=== PATIENT | male | born 1970 | race African-American/Black ===

== ENCOUNTER 2018-10-25 13:38 | Emergency (ER) | payer SELFPAY ==
[2018-10-25 14:58] LABS: ABS Eosinophils 0.1 10^3/ul (0-0.6); ABS Lymphocytes 0.8 10^3/ul (1.0-4.8); ABS Monocytes 0.4 10^3/ul (0-0.8); Eosinophil % 0.7 %; Hematocrit 37 % (42-52); Hemoglobin 12.7 g/dL (14.0-18.0); Lymphocyte % 9.5 %; Mean Corpuscular HGB Conc 34 g/dL (31-36); Mean Corpuscular Hemoglobin 31 pg (27-31); Mean Corpuscular Volume 91 fL (80-94); Mean Platelet Volume 9.2 fL (7.4-10.4); Nucleated Red Blood Cells % 0.1; Platelet Count 192 10^3/uL (150-450); Red Blood Count 4.11 10^6 /uL (4.18-5.48); Red Cell Distribution Width 14 % (10.5-15); White Blood Count 8.2 10^3/uL (3.5-10.8)
[2018-10-25 15:14] LABS: Urine Appearance Clear; Urine Bacteria Absent (Absent); Urine Bilirubin Negative (Negative); Urine Blood 2+ (Negative); Urine Color Yellow; Urine Glucose Negative (Negative); Urine Ketones Negative (Negative); Urine Nitrite Negative (Negative); Urine Protein Negative (Negative); Urine Red Blood Cell 3+(>10/hpf) (Absent); Urine Specific Gravity 1.013 (1.010-1.030); Urine Urobilinogen Negative (Negative); Urine White Blood Cell Trace(0-5/hpf) (Absent)
[2018-10-25 15:15] LABS: Albumin 4.3 g/dL (3.2-5.2); Albumin/Globulin Ratio 1.2 (1-3); BUN/Creatinine Ratio 18.1 (8-20); Calcium 9.3 mg/dL (8.6-10.3); EGFR African American 140.4 (>60); Globulin 3.6 g/dL (2-4); Potassium 3.9 mmol/L (3.5-5.0); Total Bilirubin 0.5 mg/dL (0.2-1.0); Total Protein 7.9 g/dL (6.4-8.9)
[2018-10-25 15:34] VITALS: BP 124/75
--- NOTE | 2018-10-25 16:41 | ED ---
Abdominal Pain/Male - HPI Summary HPI Summary: Patient is a 48-year-old otherwise healthy male presenting to the ED with right- sided flank pain radiating to the right lower quadrant for the past 2 days. He states prior to arrival, the pain subsided. He states he has not had pain for approximately 5-8 hours. He denies any nausea, vomiting. Denies any urinary symptoms or signs of obstruction. No history of kidney stones. He states he has never had abdominal surgeries. He takes no medications and denies any allergies. Denies any constipation, diarrhea. - History of Current Complaint Chief Complaint: EDFlankPain Stated Complaint: RIB PAIN Time Seen by Provider: 10/25/18 13:58 Hx Obtained From: Patient Onset/Duration: Sudden Onset Timing: Constant Severity Initially: Moderate Severity Currently: Moderate Pain Intensity: 0 Pain Scale Used: 0-10 Numeric Location: Other - right flank pain Radiates: Yes Radiates to: RLQ Character: Sharp Aggravating Factor(s): Nothing Alleviating Factor(s): Nothing Associated Signs And Symptoms: Positive: Negative - Risk Factors Testicular Torsion: Negative Cardiac Risk Factors: Negative - Allergies/Home Medications Allergies/Adverse Reactions: Allergies Allergy/AdvReac Type Severity Reaction Status Date / Time No Known Allergies Allergy Verified 10/25/18 13:48 Home Medications: Home Medications NK [No Home Medications Reported] 10/25/18 [History Confirmed 10/25/18] PMH/Surg Hx/FS Hx/Imm Hx Previously Healthy: Yes - Immunization History Hx Pertussis Vaccination: No Immunizations Up to Date: Yes Infectious Disease History: No Infectious Disease History: Denies: Traveled Outside the [place] in Last 30 Days - Social History Occupation: Employed Full-time Lives: With Family Alcohol Use: Occasionally Hx Substance Use: No Substance Use Type: Reports: None Hx Tobacco Use: No Smoking Status (MU): Never Smoked Tobacco Review of Systems Constitutional: Negative Negative: Fever, Chills, Fatigue, Skin Diaphoresis Negative: Palpitations, Chest Pain Negative: Shortness Of Breath, Cough Positive: Abdominal Pain. Negative: Vomiting, Diarrhea, Nausea Positive: see HPI, flank pain. Negative: hematuria Musculoskeletal: Negative Skin: Negative All Other Systems Reviewed And Are Negative: Yes Physical Exam Triage Information Reviewed: Yes Vital Signs On Initial Exam: Initial Vitals Temp Pulse Resp BP Pulse Ox 97.6 F 60 18 132/80 99 10/25/18 13:40 10/25/18 13:40 10/25/18 13:40 10/25/18 13:40 10/25/18 13:40 Vital Signs Reviewed: Yes Appearance: Positive: Well-Appearing, Well-Nourished Skin: Positive: Warm, Skin Color Reflects Adequate Perfusion Head/Face: Positive: Normal Head/Face Inspection Eyes: Positive: EOMI, Conjunctiva Clear Neck: Positive: Supple Respiratory/Lung Sounds: Positive: Clear to Auscultation, Breath Sounds Present Cardiovascular: Positive: Pulses are Symmetrical in both Upper and Lower Extremities Abdomen Description: Positive: Nontender, No Organomegaly, Soft. Negative: CVA Tenderness (R), CVA Tenderness (L) Musculoskeletal: Positive: Normal, Strength/ROM Intact Neurological: Positive: Alert, Oriented to Person Place, Time, Speech Normal Psychiatric: Positive: Affect/Mood Appropriate Diagnostics - Vital Signs Vital Signs Temp Pulse Resp BP Pulse Ox 10/25/18 15:34 98.9 F 70 18 124/75 99 10/25/18 15:32 59 124/75 10/25/18 15:11 67 130/86 100 10/25/18 15:00 66 100 10/25/18 14:43 72 100 10/25/18 14:42 77 118/85 100 10/25/18 13:40 97.6 F 60 18 132/80 99 - Laboratory Lab Results: Lab Results 10/25/18 10/25/18 10/25/18 Range/Units 14:43 14:43 14:50 WBC 8.2 (3.5-10.8) 10^3/uL RBC 4.11 L (4.18-5.48) 10^6 /uL Hgb 12.7 L (14.0-18.0) g/dL Hct 37 L (42-52) % MCV 91 (80-94) fL MCH 31 (27-31) pg MCHC 34 (31-36) g/dL RDW 14 (10.5-15) % Plt Count 192 (150-450) 10^3/uL MPV 9.2 (7.4-10.4) fL Neut % (Auto) 85.2 % Lymph % (Auto) 9.5 % [place] % (Auto) 4.4 % Eos % (Auto) 0.7 % Baso % (Auto) 0.2 % Absolute Neuts (auto) 7.0 (1.5-7.7) 10^3/ul Absolute Lymphs (auto) 0.8 L (1.0-4.8) 10^3/ul Absolute Monos (auto) 0.4 (0-0.8) 10^3/ul Absolute Eos (auto) 0.1 (0-0.6) 10^3/ul Absolute Basos (auto) 0.0 (0-0.2) 10^3/ul Absolute Nucleated RBC 0.0 10^3/ul Nucleated RBC % 0.1 Sodium 138 (135-145) mmol/L Potassium 3.9 (3.5-5.0) mmol/L Chloride 105 (101-111) mmol/L Carbon Dioxide 27 (22-32) mmol/L Anion Gap 6 (2-11) mmol/L BUN 13 (6-24) mg/dL Creatinine 0.72 (0.67-1.17) mg/dL Est GFR ( Amer) 140.4 (>60) Est GFR (Non-Af Amer) 116.0 (>60) BUN/Creatinine Ratio 18.1 (8-20) Glucose 107 H (70-100) mg/dL Calcium 9.3 (8.6-10.3) mg/dL Magnesium 2.0 (1.9-2.7) mg/dL Total Bilirubin 0.50 (0.2-1.0) mg/dL AST 22 (13-39) U/L ALT 20 (7-52) U/L Alkaline Phosphatase 70 (34-104) U/L Total Protein 7.9 (6.4-8.9) g/dL Albumin 4.3 (3.2-5.2) g/dL Globulin 3.6 (2-4) g/dL Albumin/Globulin Ratio 1.2 (1-3) Urine Color Yellow Urine Appearance Clear Urine pH 6.0 (5-9) Ur Specific [place] 1.013 (1.010-1.030) Urine Protein Negative (Negative) Urine Ketones Negative (Negative) Urine Blood 2+ A (Negative) Urine Nitrate Negative (Negative) Urine Bilirubin Negative (Negative) Urine Urobilinogen Negative (Negative) Ur Leukocyte Esterase Negative (Negative) Urine WBC (Auto) Trace(0-5/hpf) (Absent) Urine RBC (Auto) 3+(>10/hpf) A (Absent) Urine Bacteria Absent (Absent) Urine Glucose Negative (Negative) Urine Ascorbic Acid * A (Negative) Result Diagrams: 10/25/18 14:43 10/25/18 14:43 Lab Statement: Any lab studies that have been ordered have been reviewed, and results considered in the medical decision making process. Abdominal Pain Male Course/Dx - Course Course Of Treatment: On arrival into the ED, the patient appears well. He states he's been having flank pain with right lower quadrant pain radiating from the flank for approximately 2 days without associated nausea, vomiting, diarrhea, constipation. Denies any UTI symptoms. Denies any gross hematuria. He states will symptoms of been present at a 4/10 of pain, he denies any pain currently. He states he has not had pain for approximately 4-5 hours, but wanted it checked out. He denies any fevers, sweats, chills. Vital signs are stable on arrival and patient is afebrile. UA shows 3+ RBCs with no other findings. Labs obtained are WNL. CT abdomen/pelvis not obtained after speaking with the patient and patient is currently asymptomatic. He would like to defer at this time. I believe he had a recently passed kidney stone which is causing the 3+ RBCs and is currently denying any pain. He is given strict return precautions however for continuing or worsening symptoms. - Diagnoses Differential Diagnosis/HQI/PQRI: Ureteral Stone, Urinary Tract Infection, Other Provider Diagnoses: Kidney stone Discharge - Sign-Out/Discharge Documenting (check all that apply): Patient Departure Patient Received Moderate/Deep Sedation with Procedure: No - Discharge Plan Condition: Stable Disposition: HOME Patient Education Materials: Kidney Stones (ED) Referrals: No Primary Care Phys,NOPCP [Primary Care Provider] - Additional Instructions: I believe you may have had kidney stones You have no pain now, so we will not complete a cat scan, however if you develop worsening pain or symptoms - please return to the ED Ibuprofen 600mg three times daily for discomfort - Billing Disposition and Condition Condition: STABLE Disposition: Home - Attestation Statements Provider Attestation: I was available for consult. This patient was seen by the ELIER. The patient was not presented to, seen by, or examined by me. -Rohan
== END 2018-10-25 15:34 | disposition home or self-care (01) ==
LOC: ED 13:38
DX: N20.0 Calculus of kidney (principal)
CPT/HCPCS: 36415; 80053; 81003; 81015; 83735; 85025; 87086; 99283